=== PATIENT | male | born 1965 | race Caucasian/White ===

== ENCOUNTER → 2018-02-22 | Outpatient (CLI) | payer OTHER | END | disposition home or self-care (01) | LOC: RT 18:42 | DX: G47.10 Hypersomnia, unspecified (principal) | CPT/HCPCS: 95810 ==

== ENCOUNTER → 2018-10-05 | Outpatient (CLI) | payer OTHER ==
--- NOTE | 2018-10-07 09:56 | SLEEP ---
DATE OF STUDY: 10/05/2018 ATTENDING PHYSICIAN: Dr. Jenny Starr. The patient is a 52-year-old who weighs 212 pounds with a BMI of 28. The patient's [place] score was 13. The patient's list of medications also includes use of Lyrica. The patient underwent diagnostics sleep study followed by multiple sleep latency tests the next day. Results of the PSG are reported here. During the night study, the patient spent 425 minutes in bed and slept for 382 minutes with a sleep efficiency of 90%, which is normal. Sleep latency was 16 minutes with a REM latency of 78 minutes. Overall sleep architecture showed no obstructive apneas, 4 mixed apneas, 1 central apnea and 9 hypopneas. The patient's apnea-hypopnea index was 2 per hour, supine index 3 per hour and a REM index of 5 per hour. EKG monitoring revealed normal sinus rhythm, average heart rate 74 beats per minute, no sustained arrhythmias observed. Nocturnal oximetry study revealed a mean oxygen saturation of 92% with lowest of 87%. Only 5% of the time oxygen saturation remained between 80% and 89%. No clinically significant PLMS observed. Due to low AHI, the patient did not meet the split night criteria for CPAP initiation. IMPRESSION: 1. No clinically significant sleep disordered breathing. The patient's apnea-hypopnea index for the entire night was 2 per hour. 2. Mild nocturnal hypoxia related to hypoventilation. 3. No clinically significant periodic limb movements of sleep. RECOMMENDATIONS: 1. The patient did not meet the criteria for CPAP initiation due to very low AHI. 2. The patient has moderate subjective hypersomnia without any clinically significant sleep disordered breathing. It could be the effect of medication such as Lyrica. The patient underwent multiple sleep latency tests the next day, which is reported separately. 3. Avoid FOOD PREPAR[employer] KITCH[employer] AIDE depressants. 4. Caution regarding driving until the patient's hypersomnia has resolved. 5. Weight loss is advised. JIE TRINH MD DR: NOÉ/evelyn JOB#: [id number] / [id number] JENNY Kee DO
--- NOTE | 2018-10-07 10:39 | SLEEP ---
DATE OF STUDY: 10/06/2018 ATTENDING PHYSICIAN: Jenny Starr DO. The patient is 52 years old who weighs 212 pounds with a BMI of 28. The patient's [place] score was 13. The patient's list of medications also includes Lyrica, which he did not stop prior to MSLT. The patient underwent multiple sleep latency test to further evaluate etiology of his hypersomnia. The night before the MSLT, PSG was performed, which showed a sleep efficiency of 90%. The patient's AHI was only 2 per hour, and there were no clinically significant PLMS. Standard multiple sleep latency protocol was used. The patient was allowed 5 naps. During the first nap, the patient's sleep latency was 4.5 minutes. No REM sleep was observed. During the second nap, sleep latency was 5 minutes and again no REM sleep was observed. During the third nap, the patient's sleep latency was 13 minutes and no REM sleep observed and during the fourth nap, sleep latency was 7.5 minutes and no REM sleep observed. During the fifth nap, the patient's sleep latency was 15.5 minutes and no REM sleep observed. The patient's mean sleep latency to all five naps was 9.1 minutes. No REM sleep was observed. IMPRESSION: 1. Mildly abnormal multiple sleep latency test. This could be the effect of medications. The patient is currently on Lyrica. 2. The MSLT does not meet the criteria for narcolepsy. RECOMMENDATIONS: 1. Minimize the use of sedative medications. 2. Caution regarding driving until patient's hypersomnia is resolved. 3. Patient should be followed up for improvement in symptoms if off Lyrica ( If clinically possible) JIE TRINH MD DR: NOÉ/evelyn JOB#: [id number] / [id number] JENNY Kee DO MTDD
== END | disposition home or self-care (01) ==
LOC: SLPLAB 19:11
PROVIDERS: ATTEND Family Medicine
DX: G47.39 Other sleep apnea (principal); G47.34 Idiopathic sleep related nonobstructive alveolar hypoventilation
CPT/HCPCS: 95805; 95810